=== PATIENT | male | born 1995 | race African-American/Black ===

== ENCOUNTER 2023-07-18 18:10 | Emergency (ER) | payer SELFPAY ==
[2023-07-18 18:12] VITALS: BP 145/91
--- NOTE | 2023-07-18 19:17 | ED.GENMED ---
History of Present Illness
General
Chief Complaint: Musculo-Skeletal Complaint
Source: patient
Exam Limitations: none
Time Seen by Provider: 07/18/23 18:32
Nursing documentation reviewed up to this point in time: agreed with
Travel History
Have you had any contact with someone who has COVID-19?: No
Do you have any symptoms of coronavirus? Fever > 100 degrees, chills, cough, shortness of breath, sore throat, loss of taste or smell, muscle aches, or headache?: No
History of Present Illness
History of Present Illness:
Patient is a 28-year-old male who presents to the ER for evaluation of right knee injury. Patient was playing soccer up in the air when his right leg was extended his foot was hit with a soccer ball and he felt a pop in the right lateral aspect of
his knee. Since then he is not able to bear weight. He has pain with full extension.
Past History
Past History
ED Past Medical History: None
ED Past Surgical History: None
Social History
Living: with family
Review of Systems
Review of Systems
Allergies reviewed?: Yes
All Other Systems: ROS reviewed and negative except as documented in HPI and ROS
Constitutional: Reports no symptoms
Musculoskeletal: Reports other (right knee pain/injury)
Skin: Reports no symptoms
Neurological: Reports no symptoms
Psychiatric: Reports no symptoms
Phy Exam
General Physical Exam
General Presentation: no apparent distress
General age: appears stated age
General Skin: warm and dry
General Habitus: normal
General Mental: alert
General Hydration: appears well hydrated
Neurological Exam
Neurological Exam: alert and oriented x3
Musculoskeletal Exam
Musculoskeletal Exam: other (Strong distal pulses right lower EXTR able to flex and extend however pain with full extension no obvious swelling or joint effusion no ligament laxity but pain with lateral stress to right knee)
Skin Exam
Skin Exam: normal color and warm/dry
Psychiatric Exam
Psychiatric Exam: normal mood/affect
Course
Orders/Labs/Results
Orders:
Orders
07/18/23 18:14
Knee, Right 4 or More Views [CR Knee- Right 4 Or More View*] Urgent
Comment:
Reason For Exam: injury
07/18/23 19:21
Crutches-Treatment ONCE
Knee Immobilizer Right-Treatme ONCE
Ibuprofen [Motrin] 600 mg PO NOW STA
Vital Signs
Initial and Last Documented VS:
Initial Vital Signs
Temp Pulse Resp BP Pulse Ox
98.3 F 97 16 145/91 99
07/18/23 18:12 07/18/23 18:12 07/18/23 18:12 07/18/23 18:12 07/18/23 18:12
Last Documented Vital Signs
Temp Pulse Resp BP Pulse Ox
98.3 F 97 16 145/91 99
07/18/23 18:12 07/18/23 18:12 07/18/23 18:12 07/18/23 18:12 07/18/23 18:12
MDM/Problems Addressed
Differential Diagnosis Includes:
not limited to: Sprain strain ligament injury versus meniscus injury
MDM/Problems Addressed:
Symptoms are consistent with sprain strain type injury possible meniscus or LCL injury; patient does follow with [facility] orthopedics. Will DC with immobilizer Motrin ice and crutches and outpatient Ortho follow.
1927: Patient reports aware that he does not have insurance will DC with [facility] as well as in the [facility] clinic for further evaluation may need MRI.
*Critical Care Note
Total Time (30-74mins, 75-104mins- exclusive of procedures): Not Applicable
ED Attending Note
-
Portions of this chart may have been created with voice recognition software.� Occasional wrong word or��sound alike� substitutions may have occurred due to the inherent limitations of voice recognition software.
Discharge Plan
Departure
Patient Disposition: Home (Routine Discharge)
Date of Disposition: 07/18/23
Time of Disposition: 19:29
Patient with high blood pressure during this ER visit?: Yes
Condition: Fair
Covid-19: Not Applicable
Discharge Problem:
Knee sprain
Instructions: Knee Immobilizer (DC), Knee Sprain ED
Prescriptions:
No Action
No Current Medications
0
Referrals:
[facility] [Outside]
Eros Briscoe DO [Family Provider] -
Activity Restrictions/Additional Instructions:
As discussed ibuprofen 600 mg every 8 hours with food , you may alternate with Tylenol. Ice the affected area for the next 24 hours 20 minutes at a time several times day. Use crutches for ambulation and weightbearing. Wear immobilizer as
discussed for support throughout the day but remove at night while sleeping .
follow up with ortho or as manolo or [facility] or [facility] [phone].
Return if any worsening of symptoms.
Interventions
Interventions:
*Risk Screen - Suicide Last Done: 07/18/23 18:12
*General Assessment Last Done: 07/18/23 18:12
*Neglect/Abuse Screening Last Done: 07/18/23 18:12
Discharge Date and Time
Print Language: LIBERIAN
[2023-07-18] MEDS: MOTRIN 600 MG PO (19:23)
== END 2023-07-18 20:05 | disposition home or self-care (01) ==
LOC: EMR 18:10
PROVIDERS: EMERGENCY PHYSICIAN Student in an Organized Health Care Education/Training Program; FAMILY PHYSICIAN Family Medicine
DX: S83.91XA Sprain of unspecified site of right knee, initial encounter (principal); W21.02XA Struck by soccer ball, initial encounter; Y93.66 Activity, soccer
CPT/HCPCS: 99283; 29505; 73564